=== PATIENT | male | born 1990 | race Caucasian/White ===

== ENCOUNTER 2019-05-17 19:42 | Emergency (ER) | payer OTHER ==
[~2019-05-17] VITALS: Ht 177.8 cm; Wt 86.2 kg
[2019-05-17 19:45] VITALS: BP_SYST 146
[2019-05-17] MEDS ORDERED: DIPHENHYDRAMINE INJ 50 MG/ML VIAL IM ONE (20:15)
[2019-05-17] MEDS ORDERED: DEXAMETHASONE SOD PHOSPHATE 10 MG/ML VIAL IM ONE (20:15)
[2019-05-17 20:50] VITALS: BP_SYST 140
== END 2019-05-17 20:50 | disposition home or self-care (01) ==
LOC: SED 19:42
DX: T39.1X5A Adverse effect of 4-Aminophenol derivatives, initial encounter (principal); Y92.89 Other specified places as the place of occurrence of the external cause
CPT/HCPCS: 96372; 99284; J1100; J1200